=== PATIENT | female | born 1965 | race Caucasian/White ===

== ENCOUNTER 2018-01-17 13:16 | Emergency (ER) | payer MEDICAID, OTHER ==
--- NOTE | 2018-01-17 14:06 | ED Physician Documentation ---
History of Present Illness - Stated complaint Stated Complaint: L KNEE PX/SWOLLEN - Chief complaint Chief Complaint: Trauma Ext - Additonal information Additional information: hx from pt heal[place] 52 f sits a lot at work prior smoker none for 4 yr no recent travel L knee popliteal pain and swelling for about 5 days now worse no CP or SOA no injury Review of Systems Constitutional: denies: Fever Cardiac: denies: Chest pain / pressure Respiratory: denies: Dyspnea Musculoskeletal: reports: Joint pain, Extremity swelling Endocrine: denies: Easy bruising / bleeding Immunocompromised: denies: Immunocompromised PD PAST MEDICAL HISTORY - Present Medications Home Medications: Ambulatory Orders Medication Instructions Recorded Confirmed Ascorbic Acid [Vitamin C] 01/17/18 01/17/18 Ginkgo Biloba 01/17/18 Ibuprofen [Motrin] 400 mg PO Q6H PRN #30 tablet 01/17/18 Multivitamin/Iron/Folic Acid 01/17/18 [Centrum Women Tablet] Watkins-3/Dha/Epa/Fish Oil [Fish Oil 01/17/18 1,000 mg Softgel] Omeprazole [PriLOSEC] 01/17/18 - Allergies Allergies/Adverse Reactions: Allergies Allergy/AdvReac Type Severity Reaction Status Date / Time No Known Drug Allergies Allergy Verified 01/17/18 13:26 PD ED PE NORMAL - Vitals Vital signs reviewed: Yes - Cardiac Cardiac: RRR - Respiratory Respiratory: No respiratory distress, Clear bilaterally - Extremities Extremities: Other (LLE swollen approx 2-3 cm larger than R, TTP popliteal s cord, MSV intact) Results - Vitals Vitals: Vital Signs - 24 hr 01/17/18 01/17/18 01/17/18 13:21 16:08 18:01 Temperature 36.7 C 37 C Heart Rate 64 58 L 58 L Respiratory 18 14 14 Rate Blood Pressure 116/70 104/43 L 111/55 L O2 Saturation 100 98 100 Oxygen O2 Source Room air PD MEDICAL DECISION MAKING - ED course ED course: doppler neg for DVT Departure - Departure Disposition: 01 Home, Self Care Clinical Impression: Knee effusion, left Condition: Good Instructions: ED Effusion Knee Prescriptions: Ibuprofen [Motrin] 400 mg PO Q6H PRN #30 tablet PRN Reason: Pain Comments: Thankfully the ultrasound did not show a blood clot. However, your history and exam are concerning for a deep vein thrombosis - and occasionally a small clot at or below the knee can be difficult to see on initial exam So if the swelling persists I recommend you get a repeat ultrasound on Monday - your PMD could order this If you get much worse - leg is discolored, very painful, you develop chest pain or shortness of breath) then come to the ER for a repeat ultrasound earlier Otherwise you knee is not red or warm to touch so I doubt an infection. And there was no injury so I don't think there are bone or ligament injuries For now, you can go home. Recommend an HEENA wrap to decrease the swelling - ice and elevation will help Motrin will help the pain and also decrease inflammation Forms: Activity restrictions Discharge Date/Time: 01/17/18 18:04
--- NOTE | 2018-01-17 16:14 | Ultrasound Preliminary Report ---
Exam: US DUPLEX EXT VEINS LEFT IMPRESSION: No evidence for deep venous thrombosis. [facility] SITE ID: [id number]
--- NOTE | 2018-01-17 16:59 | Ultrasound Report ---
EXAM: LEFT LOWER EXTREMITY VENOUS ULTRASOUND EXAM DATE: 01/17/2018 03:59 PM. CLINICAL HISTORY: Left lower extremity swelling. COMPARISON: None. TECHNIQUE: Real-time sonographic vascular imaging was performed by the is/it project manager through the lower extremity utilizing both color-flow and Doppler spectral analysis. Multiple underwriting service representative static terrie ges were saved for review. FINDINGS: Common Femoral Vein (CFV): Normal. CFV-GSV Junction: Normal. Profunda Femoral Vein (PFV): Normal. Femoral Vein (FV) Prox: Normal. Femoral Vein (FV) Mid: Normal. Femoral Vein (FV) Dist: Normal. Popliteal Vein: Normal. Posterior Tibial Veins: Normal. Peroneal Veins: Normal. Contralateral Side CFV: Normal. Other: None. IMPRESSION: No evidence for deep venous thrombosis. [facility] Referring Provider Line: [phone] SITE ID: [id number]
[2018-01-17 18:03] VITALS: BP 111/55
== END 2018-01-17 18:04 | disposition home or self-care (01) ==
LOC: ED 13:16
DX: M25.462 Effusion, left knee (principal)
CPT/HCPCS: 99283

== ENCOUNTER 2019-12-20 10:46 | Outpatient (CLI) | payer BC ==
--- NOTE | 2019-12-30 10:31 | Mammography Report ---
Reason: ROUTINE MAMMO Procedure Date: 12/20/2019 Accession Number: [id number] / [id number] Procedure: [facility] - Screening Mammo w/Héctor CPT Code: Final Report FULL RESULT: EXAM: Screening Mammo w/Héctor DATE: 12/20/2019 11:12 AM CLINICAL HISTORY: Screening encounter. TECHNIQUE: (B) - Bilateral CC and MLO views were obtained. COMPARISON: None PARENCHYMAL PATTERN: (D) - The breast(s) demonstrate(s) heterogeneously dense fibroglandular parenchyma. FINDINGS: There are no suspicious masses, calcifications, or areas of distortion. IMPRESSION: Negative examination. BI-RADS category 1. RECOMMENDATION: (ANNUAL) - Recommend routine annual screening mammography. BI-RADS CATEGORY: (1) - Negative. STANDARD QUALIFYING STATEMENTS: 1. This examination was not reviewed with the aid of Computer-Aided Detection (CAD). 2. A negative or benign imaging report should not preclude biopsy if clinically suspicious findings are present. 3. Dense breasts may obscure an underlying neoplasm. 4. This examination was reviewed with the aid of 3D breast imaging (tomosynthesis).
== END 2019-12-20 10:47 | disposition home or self-care (01) ==
LOC: DI 10:46
PROVIDERS: ATTEND Registered Nurse
DX: Z12.31 Encounter for screening mammogram for malignant neoplasm of breast (principal)
CPT/HCPCS: 77063; 77067

== ENCOUNTER 2023-05-18 07:50 | Outpatient (CLI) | payer OTHER | END 2023-05-18 23:59 | disposition home or self-care (01) | LOC: LAB.S 07:50 | PROVIDERS: ATTEND Physician Assistant | DX: R30.0 Dysuria (principal) | CPT/HCPCS: 87086; 87181 ==